=== PATIENT | male | born 1945 | race Asian ===

== ENCOUNTER → 2019-10-12 | Day surgery (SDC) | payer MEDICARE ==
[2019-10-08 11:58] LABS: BASOPHILS # (AUTO) 0.1 (0.0-0.1); BASOPHILS % 0.6 % (0.0-1.0); EOSINOPHILS # (AUTO) 0.3 (0.0-0.4); EOSINOPHILS % 4.1 % (0.0-6.0); HEMATOCRIT 44.8 % (38.2-49.6); HEMOGLOBIN 15.5 g/dL (14.0-18.0); LYMPHOCYTES # (AUTO) 1.8 (1.0-3.2); LYMPHOCYTES % 22.3 % (18.0-39.1); MEAN CORPUSCULAR HEMOGLOBIN 33.4 pg (28-32); MEAN CORPUSCULAR HGB CONC 34.6 g/dL (31-35); MEAN CORPUSCULAR VOLUME 96.6 fL (81-99); MONOCYTES # (AUTO) 0.6 (0.2-0.8); MONOCYTES % 7.9 % (4.4-11.3); NEUTROPHILS # (AUTO) 5.2 (2.1-6.9); NEUTROPHILS % 64.8 % (38.7-80.0); PLATELET COUNT 245 x10e3/uL (140-360); RED BLOOD COUNT 4.64 x10e6/uL (4.3-5.7)
[~2019-10-12] MED LIST: ASPIR 8181 MG PO; ATORVASTATIN CA20 MG PO; CARVEDILOL25 MG PO; FISH OIL 1,2001 EAC6 PO; GLIMEPIRIDE2 MG PO; LANTUS SOLOSTAR SQ; LISINOPRIL10 MG PO; MULTI-VITAMIN1 EACH PO; PROPOFOL IV EMULSION 10 MG/ML 20 ML VIAL ONE; TRULICITY0.75 MG/0. SQ; TUMERIC PO
--- OUTSIDE RECORDS SUMMARY | 2019-10-12 05:48 | XMS REPORT | Encounter Summary ---
Author Organization Unknown Address [address] [place] [address] Phone [phone] Care Team Providers Care Maintenance Clerk Name Role Phone Hernan Villar MD 3 [phone] Abhilash Whitfield MD 82 [phone] Rae Hahn DMD 104 [phone] Leti Jones MD 105 [phone] Franky Ferrer MD 111 [phone] Gio Cortez MD 118 [phone] Bladimir Wing 118 [phone] Lidia Davidson MD 119 [phone] Liz Preston MD 129 [phone] Reason for Visit chronic conditions Instructions 1. Diabetes mellitus HbA1c (hemoglobin A1c), blood 2. Hypertensive disorder 3. Dyslipidemia 4. Peripheral vascular disease 5. Screening for cardiovascular system disease ankle brachial index - Peripheral Artery Disease Ratio ([employer]) 6. Screening for disorder hepatitis C virus RNA, quant, PCR, serum or plasma 7. Body mass index 25-29 - overweight learning about healthy weight Discussion Note: None recorded. Plan of Care Patient Instructions RTC 3mo Reminders Provider Appointments Est Patient 02/04/2019 9:15AM Hernan Villar MD Lab Hepatitis C Virus RNA, Quant, PCR, Serum or Plasma 11/04/2018 [facility] Laboratory HbA1C (Hemoglobin a1C), Blood 11/04/2018 [facility] Laboratory Referral None recorded. Procedures None recorded. Surgeries None recorded. Imaging Ankle Brachial Index 11/04/2018 [facility] ([facility]) [place] Medications Name Start Date amlodipine besylate 10 mg tabs -81 atorvastatin 20 mg tablet Take 1 tablet every day by oral route. carvedilol 25 mg tablet Take 1 tablet twice a day by oral route. contour next blood glucose test strp glimepiride 4 mg tablet Take 1 tablet twice a day by oral route. lisinopril 40 mg tablet Take 1 tablet every day by oral route. pioglitazone 45 mg tablet Take 1 tablet every day by oral route. Tradjenta 5 mg tablet Take 1 tablet every day by oral route. triamcinolone acetonide 0.1 % crea triamcinolone acetonide 0.1 % oint Trulicity 1.5 mg/0.5 mL subcutaneous pen injector Inject 0.5 mL every week by subcutaneous route. Medications Administered None recorded. Vitals Height Weight BMI Blood Pressure 5 ft 10 in 177.7 lbs 25.5 kg/m2 128/62 mm[Hg] Lab Results None recorded. 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 Lichen Planus Active 10/19/2018 Peripheral Vascular Disease Active 11/04/2018 Procedures Date Name Performed by 08/25/2009 Cataract Surgery Complex Information not available 08/25/2009 Appendectomy Information not available Colonoscopy Information not available 11/04/2018 Ankle Brachial Index [facility] ([facility] [address] [place] [address] (Work [address]) Vaccine List Vaccine Type influenza, unspecified formulation 04/25/2017 05/14/2018 pneumococcal conjugate PCV 13 08/25/2012 pneumococcal polysaccharide PPV23 08/25/2016 Social History Smoking Status Former Smoker (2 PPW) Past Encounters 11/04/2018 Diabetes Mellitus; Hypertensive Disorder; Dyslipidemia; Peripheral Vascular Disease; Screening for Cardiovascular System Disease; Screening for Disorder; Body Mass Index 25-29 - Overweight Hernan Villar MD: [address], [address], [place] [address], Ph. History of Present Illness Note:<div>diabetes mellitus - BG 200s on new Trulicity dose. BG is going down slowly to 150s. Taking meds. No problems with side effects or cost.
</div>< div>glimepiride 4 mg tablet
</div><div>pioglitazone 45 mg tablet
</div>< div>Tradjenta 5 mg tablet
</div><div>Trulicity 1.5 mg/0.5 mL subcutaneous pen injector 0.5 mL every week
</div><div>
</div><div>hypertensive disorder - Stable. Taking meds. No problems with side effects or cost.
</div><div> amLODIPine 10 mg tablet
</div><div>carvedilol 25 mg tablet
</div><div> lisinopril 40 mg tablet
</div><div>
</div><div>dyslipidemia - Stable. Taking meds. No problems with side effects or cost.
</div><div>atorvastatin 20 mg tablet</div><div>
</div>skin lesion - stable
<div>Refer DermDr Clos - saw</div><div>
</div><div>ophthalmic examination and evaluation
< /div><div>Refer ophthDr. Caitlin Dr.</div><div>
</div><div> Your labs are normal except...
</div><div>1. Your kidney tests are abnormal. Drink water at least 4 times daily. See your kidney doctor regularly.
</div>< div>2. Your diabetes is better but still higher than I would like. I am increasing your Trulicity from 0.75 mg to 1.5 mg weekly injections. I recommend low carb / sugar diet and walking. I will monitor.</div> Review of Systems:ROS as noted in the HPI Review of Systems Comprehensive General Adult ROS Reported By: Patient Constitutional: Constitutional: no fever Eyes: Eyes: no vision change, no irritation ENMT: Ears: no difficulty hearing, no ear pain. Nose: no nose problems, no sinus problems. Mouth/Throat: no sore throat, no oral abnormalities Cardiovascular: Cardiovascular: no chest pain, no palpitations Respiratory: Respiratory: no cough, no wheezing, no shortness of breath Gastrointestinal: Gastrointestinal: no abdominal pain, no nausea, no vomiting, no constipation, normal appetite, no diarrhea, no GERD Genitourinary: Genitourinary: no difficulty urinating, no hematuria, no increased frequency Musculoskeletal: Musculoskeletal: no muscle aches Integumentary: Skin: no rashes Neurologic: Neurologic: no headaches Endocrine: Endocrine: no fatigue Hematologic/Lymphatic: Hematologic/Lymphatic no swollen glands Allergic/Immunologic: Allergy/Immunologic: no runny nose, no sinus pressure, no itching, no frequent sneezing Physical Exam General Adult Exam (male) Reported By: Patient Constitutional: General Appearance: healthy-appearing, well-nourished, well-developed. Level of Distress: NAD. Ambulation: ambulating normally Psychiatric: Insight: good judgement. Mental Status: normal mood, normal affect Head: Head: normocephalic, atraumatic Eyes: Lids and Conjunctivae: non-injected, no discharge, no pallor. Pupils: PERRLA. EOM: EOMI ENMT: Ears: no lesions on external ear, EACs clear, TMs clear. Hearing: no hearing loss. Nose: no lesions on external nose, nares patent, nasal passages clear, no sinus tenderness, no nasal discharge. Oropharynx: moist mucous membranes, no erythema, no exudates, tonsils not enlarged Neck: Neck: supple, trachea midline, no masses, FROM. Lymph Nodes: no cervical LAD, no supraclavicular LAD Lungs: Respiratory effort: no dyspnea. Auscultation: breath sounds normal, good air movement, CTA except as noted, no wheezing, no rales/crackles, no rhonchi Cardiovascular: Heart Auscultation: RRR, normal S1, normal S2, no murmurs, no rubs, no gallops Abdomen: Bowel Sounds: normal. Inspection and Palpation: soft, non-distended, no tenderness, no guarding, no masses. Liver: non-tender, no hepatomegaly. Spleen: non-tender, no splenomegaly Musculoskeletal:: Extremities: no edema Neurologic: Gait and Station: normal gait, normal station Skin: Inspection and palpation: rash; rash on yessi UE, red bumps
--- OUTSIDE RECORDS SUMMARY | 2019-10-12 05:48 | XMS REPORT | Encounter Summary ---
Author Organization Unknown Address [address] [place] [address] Phone [phone] Care Team Providers Care Medical Artist Name Role Phone Dr. Hernan Villar 3 [phone] Hernan Villar MD 3 [phone] Abhilash Whitfield MD 82 [phone] Rae Hahn DMD 104 [phone] Leti Jones MD 105 [phone] Franky Ferrer MD 111 [phone] Gio Cortez MD 118 [phone] Bladimir Wing 118 [phone] Lidia Davidson MD 119 [phone] Liz Preston MD 129 [phone] Reason for Visit chronic conditions Instructions 1. Diabetes mellitus diabetic ophthalmology referral HbA1c (hemoglobin A1c), blood Trulicity 1.5 mg/0.5 mL subcutaneous pen injector 2. Hypertensive disorder 3. Dyslipidemia 4. Influenza vaccination Fluzone High-Dose 2019-20 (PF) 180 mcg/0.5 mL intramuscular syringe 5. Body mass index 25-29 - overweight Discussion Note: None recorded. Patient educational handouts: No information available. Plan of Care Patient Instructions RTC 1 mo for AWV Reminders Provider Appointments Awv on or around 08/06/2019 Hernan Villar MD Lab HbA1C (Hemoglobin a1C), Blood 07/07/2019 [facility] Laboratory Referral Diabetic Ophthalmology Referral 07/07/2019 Franky Ferrer MD Procedures None recorded. Surgeries None recorded. Imaging None recorded. Medications Name Start Date amlodipine 10 mg tablet Take 1 tablet every day by oral route. Aspir-81 atorvastatin 20 mg tablet Take 1 tablet every day by oral route. carvedilol 25 mg tablet Take 1 tablet twice a day by oral route. Contour Next Test Strips Check blood sugar daily. Rotate between fasting / breakfast / lunch / dinner. glimepiride 4 mg tablet Take 1 tablet twice a day by oral route. lisinopril 40 mg tablet Take 1 tablet every day by oral route. Trulicity 1.5 mg/0.5 mL subcutaneous pen injector Inject 0.5 mL every week by subcutaneous route. Medications Administered None recorded. Vitals Height Weight BMI Blood Pressure 5 ft 10 in 178.6 lbs 25.6 kg/m2 118/68 mm[Hg] Results Lab Results None recorded. Allergies Code Code System Name Reaction Severity Status Onset NKDA Problems Name Status Onset Date Source Diabetes Mellitus Active 02/03/2018 Dyslipidemia Active 02/03/2018 Depressive Disorder Active 02/03/2018 Hypertensive Disorder Active 02/03/2018 Chronic Kidney Disease Stage 3 Active 02/03/2018 Lichen Planus Active 10/19/2018 Peripheral Vascular Disease Active 11/04/2018 Procedures Date Name Performed by 08/25/2009 Cataract Surgery Complex Information not available 08/25/2009 Appendectomy Information not available Colonoscopy Information not available Vaccine List Vaccine Type influenza, unspecified formulation 04/25/2017 05/14/2018 pneumococcal conjugate PCV 13 08/25/2012 pneumococcal polysaccharide PPV23 08/25/2016 Social History Tobacco Smoking Status Former Smoker (2 PPW) Past Encounters 07/07/2019 Diabetes Mellitus; Hypertensive Disorder; Dyslipidemia; Influenza Vaccination; Body Mass Index 25-29 - Overweight Hernan Villar MD: [id number], [address] [address], Ph. History of Present Illness Note:diabetes mellitus - Stable. BG 90-170. Taking meds. No problems with side effects or cost. <div>x/ below <div>D/C Tradjenta since DDP4 similar to GLP1 - Pt still taking Tradjenta</div><div>pioglitazone 30 mg tablet - Pt never took< /div><div>glimepiride 4 mg tablet
</div><div>Trulicity 0.75 mg/0.5 mL subcutaneous pen injector
</div><div>
</div><div>hypertensive disorder - Stable. Taking meds. No problems with side effects or cost.
</div><div> amLODIPine 10 mg tablet
</div><div>carvedilol 25 mg tablet
</div><div> lisinopril 40 mg tablet
</div><div>
</div><div>dyslipidemia - Stable. Taking meds. No problems with side effects or cost.
</div><div>atorvastatin 20 mg tablet
</div><div>
</div><div>chronic kidney disease stage 3 - stable
</div><div>Per Neph</div><div>
</div><div>screening for malignant neoplasm of colon
</div><div>Refer GI, Dr. Whitfield - not yet</div><div>
</div ><div>Your labs are normal except...
</div><div>1. Your diabetes is high. I am restarting Pioglitazone. I recommend low carb / sugar diet and walking. I will monitor.
</div><div>
</div></div> Review of Systems:ROS as noted in the [...] Reported By: Patient Constitutional: General Appearance: healthy-appearing, well-developed, overweight. Level of Distress: NAD. Ambulation: ambulating normally Psychiatric: Insight: good judgement. Mental Status: active and alert, normal mood, normal affect Head: Head: normocephalic, atraumatic Lungs: Respiratory effort: no dyspnea. Auscultation: breath sounds normal, good air movement, CTA except as noted Cardiovascular: Heart Auscultation: RRR, normal S1, normal S2 Neurologic: Gait and Station: normal gait, normal station
--- OUTSIDE RECORDS SUMMARY | 2019-10-12 05:48 | XMS REPORT | Encounter Summary ---
Author Organization Unknown Address [address] [place] [address] Phone [phone] Care Team Providers Care Band Bias Machine Operator Name Role Phone Hernan Villar MD 3 [phone] Abhilash Whitfield MD 82 [phone] Rae Hahn DMD 104 [phone] Leti Jones MD 105 [phone] Franky Ferrer MD 111 [phone] Gio Cortez MD 118 [phone] Bladimir Wing 118 [phone] Lidia Davidson MD 119 [phone] Liz Preston MD 129 [phone] Reason for Visit chronic conditions Instructions 1. Diabetes mellitus HbA1c (hemoglobin A1c), blood glimepiride 4 mg tablet Trulicity 0.75 mg/0.5 mL subcutaneous pen injector 2. Hypertensive disorder amlodipine 10 mg tablet carvedilol 25 mg tablet lisinopril 40 mg tablet 3. Dyslipidemia atorvastatin 20 mg tablet 4. Chronic kidney disease stage 3 PTH (parathyroid hormone), intact, serum or plasma 5. Depressive disorder 6. Screening for malignant neoplasm of colon colonoscopy referral 7. Body mass index 25-29 - overweight learning about healthy weight Discussion Note: None recorded. Plan of Care Patient Instructions RTC 6mo for AWV Reminders Provider Appointments Awv on or around 08/06/2019 Hernan Villar MD Lab HbA1C (Hemoglobin a1C), Blood 02/04/2019 [facility] PTH (Parathyroid Hormone), Intact, Serum or Plasma 02/04/2019 [facility] Laboratory Referral Colonoscopy Referral 02/04/2019 Luiz Whitfield MD Procedures None recorded. Surgeries None recorded. [...] tablet every day by oral route. Trulicity 0.75 mg/0.5 mL subcutaneous pen injector Inject 0.5 mL every week by subcutaneous route. Medications Administered None recorded. Vitals Height Weight BMI Blood Pressure 5 ft 10 in 178.2 lbs 25.6 kg/m2 122/68 mm[Hg] Lab Results None recorded. Allergies Code [...] Status Former Smoker (2 PPW) Past Encounters 02/04/2019 Diabetes Mellitus; Hypertensive Disorder; Dyslipidemia; Chronic Kidney Disease Stage 3; Depressive Disorder; Screening for Malignant Neoplasm of Colon; Body Mass Index 25-29 - Overweight Hernan Villar MD: [address], [address], [place] [address], Ph. History of Present Illness Note:diabetes mellitus - Stable. Taking meds. No problems with side effects or cost.
<div>Trulicity 0.75 mg/0.5 mL subcutaneous pen injector</div><div> Lantus Solostar U-100 Insulin 100 unit/mL (3 mL) subcutaneous pen - not using, w ants to avoid</div><div>
</div><div>hypertensive disorder - Stable. Taking meds. No problems with side effects or cost.
</div><div>
</div><div> dyslipidemia - Stable. Taking meds. No problems with side effects or cost.
< /div><div>
</div><div>CKD - stable</div><div>
</div><div>peripheral vascular disease - stable</div><div>
</div><div>Your labs are normal except...
</div><div>1. Your diabetes is still a little high. Take your meds. I am referring you to our physician assistant psychiatry, Partha. I am also starting you on a low dose insulin. I recommend low carb / sugar diet [...]
--- OUTSIDE RECORDS SUMMARY | 2019-10-12 05:48 | XMS REPORT | Encounter Summary ---
Author Organization Unknown Address [address] [place] [address] Phone [phone] Care Team Providers Care Disintegrator Feeder Name Role Phone Dr. Hernan Villar 3 [phone] Hernan Villar MD 3 [phone] Abhilash Whitfield MD 82 [phone] Rae Hahn DMD 104 [phone] Leti Jones MD 105 [phone] Franky Ferrer MD 111 [phone] Gio Cortez MD 118 [phone] Bladimir Wing 118 [phone] Lidia Davidson MD 119 [phone] Liz Preston MD 129 [phone] Reason for Visit Annual Depression Screening; Medicare Screening PSA; Advance Care Plan; AWV Annual Wellness Visit Male (VFP) Instructions 1. Diabetes mellitus CBC w/ auto diff CMP, serum or plasma TSH, serum or plasma HbA1c (hemoglobin A1c), blood microalbumin/creatinine, mass ratio, urine glimepiride 4 mg tablet Trulicity 1.5 mg/0.5 mL subcutaneous pen injector Lantus Solostar U-100 Insulin 100 unit/mL (3 mL) subcutaneous pen 2. Hypertensive disorder amlodipine 10 mg tablet carvedilol 25 mg tablet lisinopril 40 mg tablet 3. Dyslipidemia lipid panel, serum atorvastatin 20 mg tablet 4. Peripheral vascular disease 5. Chronic kidney disease stage 3 6. Senile purpura 7. Depressive disorder 8. Adult health examination 9. Screening for malignant neoplasm of colon colonoscopy referral - *PLEASE CALL PT TO SCHEDULE* 10. Screening for malignant neoplasm of prostate PSA, serum or plasma 11. Depression screening learning about depression 12. Advance directive discussed with patient advance care planning: care instructions 13. Screening for disorder 14. Body mass index 25-29 - overweight learning about healthy weight Discussion Note RTC 3 mo Plan of Care Patient Instructions It was good to see you in the office today for your Medicare Annual Wellness Visit. You have been provided some information on healthy nutrition, including a diet rich in fruits and vegetables, minimizing simple carbohydrates, salt, and saturated fats. I want to encourage regular cardiovascular exercise such as walking at least 30 minutes daily, 5 times per week. Please remember to schedule any preventive health measures that we talked about today. You have also been provided education on fall prevention and community- based lifestyle interventions to help reduce health risks and promote healthy living in your Annual Wellness folder. Screening Recommendations 1. Vaccines Pneumonia: No further need Influenza: Next Fall 2. Colorectal Cancer Screening: Colonoscopy (every 10 years) Ordered 3. Annual Prostate Screening 4. Annual Depression Screening 5. Annual Alcohol Screening 6. Annual Fall Risk Screening 7. Annual Health Risk Assessment Patient Instructions on Filing Advance Directives Be sure that you have easy access to your paperwork for your medical power of civil engineering project designer and advanced directives. Be sure that the designated person as well as important family members have copies of those forms as well. Please have contact information of your designee readily available. In the event of hospitalization, please bring those important documents with you for reference. Reminders Provider Appointments Est Patient on or around 11/17/2019 Hernan Villar MD Awv 30 on or around 08/19/2020 Hernan Villar MD Lab PSA, Serum or Plasma 08/19/2019 [facility] CBC W/ Auto Diff 08/19/2019 [facility] CMP, Serum or Plasma 08/19/2019 [facility] TSH, Serum or Plasma 08/19/2019 [facility] Lipid Panel, Serum 08/19/2019 [facility] HbA1C (Hemoglobin a1C), Blood 08/19/2019 [facility] Microalbumin/creatinine, Mass Ratio, Urine 08/19/2019 [facility] Referral Colonoscopy Referral 08/19/2019 Del Warren MD Procedures None recorded. Surgeries None recorded. [...] tablet twice a day by oral route. Lantus Solostar U-100 Insulin 100 unit/mL (3 mL) subcutaneous pen Inject 15 units every day by subcutaneous route. lisinopril 40 mg tablet Take 1 tablet every day by oral route. Trulicity 1.5 mg/0.5 mL subcutaneous pen injector Inject 0.5 mL every week by subcutaneous route. Medications Administered None recorded. Vitals Height Weight BMI Blood Pressure 5 ft 10 in 181 lbs 26 kg/m2 139/69 mm[Hg] Results Lab Results None recorded. Allergies Code Code System Name Reaction Severity Status Onset NKDA Problems Name Status Onset Date Source Diabetes Mellitus Active 02/03/2018 Dyslipidemia Active 02/03/2018 Depressive Disorder Active 02/03/2018 Hypertensive Disorder Active 02/03/2018 Chronic Kidney Disease Stage 3 Active 02/03/2018 Lichen Planus Active 10/19/2018 Peripheral Vascular Disease Active 11/04/2018 Senile Purpura Active 08/19/2019 Procedures Date Name Performed by 08/25/2009 Cataract Surgery Complex Information not available 08/25/2009 Appendectomy Information not available Colonoscopy Information not available Vaccine List Vaccine Type influenza, high dose seasonal 07/07/20190.5 mL influenza, unspecified formulation 04/25/2017 05/14/2018 pneumococcal conjugate PCV 13 08/25/2012 pneumococcal polysaccharide PPV23 08/25/2016 Social History Tobacco Smoking Status Former Smoker (2 PPW) Past Encounters 08/19/2019 Diabetes Mellitus; Hypertensive Disorder; Dyslipidemia; Peripheral Vascular Disease; Chronic Kidney Disease Stage 3; Senile Purpura; Depressive Disorder; Adult Health Examination; Screening for Malignant Neoplasm of Colon; Screening for Malignant Neoplasm of Prostate; Depression Screening; Advance Directive Discussed with Patient; Screening for Disorder; Body Mass Index 25-29 - Overweight Hernan Villar MD: [id number] [facility], [address], [place] [address], Ph. History of Present Illness Mini Cog Reported By: Patient Functional Ability: Personal/Social/ Draw a clock and write in the numbers in the correct place, and set the time to 10 minutes after 11 o'clock was completed correctly? Yes, 3 word recall: Your nurse or doctor will ask you to remember 3 words. In 5 minutes, they will ask you to repeat them. Patient recalled 3 words Opioid Use Assessment Reported By: Patient Opioid Use Assessment:: Current Use of Opioids : no use of opioids (no further questions required) Note:<div>AWV due.</div><div>
</div><div>Skin - bruises easily.</div><div>
</div><div>diabetes mellitus - Stable. Taking meds. No problems with side effects or cost. </div><[facility]</div><div> Trulicity 1.5 mg/0.5 mL subcutaneous pen injector 0.5 mL every week</div><div>< br></div><div>hypertensive disorder - Stable. Taking meds. No problems with side effects or cost. </div><div>
</div><div>dyslipidemia - Stable. Taking meds. No problems with side effects or cost. </div><div>
</div><div>CKD - stable< /div><div>
</div><div>PVD - stable. Control RF.</div><div>
</div><div> Depression - resolved. Not on meds.</div><div>
</div><div>Your labs are normal except...
</div><div>1. Your Diabetes is high. Take your meds. I recommend low carb / sugar diet and walking. I will monitor.</div><div>
</div >I'd like to talk about what is ahead with your illness and do some thinking in advance about what is important to you so I can make sure we provide you with the care you want-is that okay? {{Yes*|No}} Review of Systems:ROS as noted in the HPI Review of Systems Comprehensive General Adult ROS Reported By: Patient Constitutional: Constitutional: no fever, no night sweats, no significant weight gain, no significant weight loss, no exercise intolerance Eyes: Eyes: no dry eyes, no vision change, no irritation ENMT: Ears: no difficulty hearing, no ear pain. Nose: no frequent nosebleeds, no nose problems, no sinus problems. Mouth/Throat: no sore throat, no bleeding gums, no snoring, no dry mouth, no mouth ulcers, no oral abnormalities, no teeth problems Cardiovascular: Cardiovascular: no chest pain, no arm pain on exertion, no shortness of breath when walking, no shortness of breath when lying down, no palpitations, no known heart murmur, no lightheadedness Respiratory: Respiratory: no cough, no wheezing, no shortness of breath, no coughing up blood, no sleep apnea Gastrointestinal: Gastrointestinal: no abdominal pain, no nausea, no vomiting, no constipation, normal appetite, no diarrhea, not vomiting blood, no dyspepsia, no GERD Genitourinary: Genitourinary: no incontinence, no difficulty urinating, no hematuria, no increased frequency Musculoskeletal: Musculoskeletal: no muscle aches, no muscle weakness, no arthralgias/joint pain, no back pain, no swelling in the extremities Integumentary: Skin: no abnormal mole, no jaundice, no rashes, no laceration Neurologic: Neurologic: no loss of consciousness, no weakness, no numbness, no seizures, no dizziness, no migraines, no headaches, no tremor Psychiatric: Psych: no depression, no sleep disturbances, feeling safe in a relationship, no alcohol abuse, no anxiety, no hallucinations, no suicidal thoughts Endocrine: Endocrine: no fatigue Hematologic/Lymphatic: Hematologic/Lymphatic no swollen glands, no bruising, no excessive bleeding Allergic/Immunologic: Allergy/Immunologic: no runny nose, no sinus pressure, no itching, no hives, no frequent sneezing Physical Exam General Adult Exam (male) Reported By: Patient Constitutional: General Appearance: healthy-appearing, well-developed, overweight. Level of Distress: NAD. Ambulation: ambulating normally Psychiatric: Insight: good judgement. Mental Status: active and alert, normal mood, normal affect. Orientation: to time, to place, to person. Memory: recent memory normal, remote memory normal Head: Head: normocephalic, atraumatic Eyes: Lids and Conjunctivae: non-injected, no discharge, no pallor. Pupils: PERRLA. EOM: EOMI. Lens: clear. Sclerae: non-icteric. Vision: peripheral vision grossly intact, acuity grossly intact ENMT: Ears: no lesions on external ear, EACs clear, TMs clear, TM mobility normal. Hearing: no hearing loss. Nose: no lesions on external nose, nares patent, no septal deviation, nasal passages clear, no sinus tenderness, no nasal discharge. Lips, Teeth, and Gums: no mouth or lip ulcers, no bleeding gums, normal dentition. Oropharynx: moist mucous membranes, no erythema, no exudates, tonsils not enlarged Neck: Neck: supple, trachea midline, no masses, FROM. Lymph Nodes: no cervical LAD, no supraclavicular LAD, no axillary LAD, no inguinal LAD. Thyroid: no enlargement, non-tender, no nodules Lungs: Respiratory effort: no dyspnea. Auscultation: breath sounds normal, good air movement, CTA except as noted, no wheezing, no rales/crackles, no rhonchi Cardiovascular: Heart Auscultation: RRR, normal S1, normal S2, no murmurs, no rubs, no gallops. Neck vessels: no carotid bruits. Pulses including femoral / pedal: normal throughout Abdomen: Bowel Sounds: normal. Inspection and Palpation: soft, non-distended, no tenderness, no guarding, no rebound tenderness, no masses, no CVA tenderness. Liver: non-tender, no hepatomegaly. Spleen: non-tender, no splenomegaly Musculoskeletal:: Motor Strength and Tone: normal, normal tone. Joints, Bones, and Muscles: normal movement of all extremities, no contractures, no bony abnormalities, no malalignment, no tenderness. Extremities: no cyanosis, no edema, no varicosities Neurologic: Gait and Station: normal gait, normal station. Cranial Nerves: grossly intact. Sensation: grossly intact. Reflexes: DTRs 2+ bilaterally throughout. Coordination and Cerebellum: no tremor Skin: Inspection and palpation: no lesions, no jaundice Back: Thoracolumbar Appearance: normal curvature; No spinal tenderness to palpation"
--- OUTSIDE RECORDS SUMMARY | 2019-10-12 05:48 | XMS REPORT | Encounter Summary ---
Author Organization Unknown Address [address] [place] [address] Phone [phone] Care Team Providers Care Drier Belt Conveyor Name Role Phone Hernan Villar MD 3 [phone] Abhilash Whitfield MD 82 [phone] Rae Hahn DMD 104 [phone] Leti Jones MD 105 [phone] Franky Ferrer MD 111 [phone] Gio Cortez MD 118 [phone] Bladimir Wing 118 [phone] Lidia Davidson MD 119 [phone] Liz Preston MD 129 [phone] Reason for Visit Diabetic Education, Class 3; Diabetic Education, Class 4 Instructions Discussion Note Class 3 of diabetes education completed today. Topics covered were: What blood glucose and insulin are Blood glucose targets and reactions to out-of range levels â What can cause blood glucose to go up and down and how to prevent hypoglycemia and hyperglycemia Using your monitoring results to manage you diabetes. Class 4 of diabetes education completed. Topics covered included:The potential long-term complications of diabetesHow to delay or reduce the risk of regional intermodal truck driver complications of diabetesKnowing your ABCs of diabetes. (A1C, B/P, cholesterol). Patient educational handouts: No information available. Plan of Care Reminders Provider Appointments Est Patient 02/04/2019 9:15AM Hernan Villar MD Lab None recorded. Referral None recorded. Procedures None recorded. Surgeries None recorded. Imaging None recorded. Medications Name Start Date amlodipine besylate 10 mg tabs Aspir-81 atorvastatin 20 mg tablet Take 1 tablet every day by oral route. carvedilol 25 mg tablet Take 1 tablet twice a day by oral route. carvedilol 25 mg tabs contour next blood glucose test strp glimepiride 4 mg tablet Take 1 tablet twice a day by oral route. glimepiride 4 mg tabs Lantus Solostar U-100 Insulin 100 unit/mL (3 mL) subcutaneous pen Inject 5 units every day by subcutaneous route. lisinopril [...] subcutaneous route. Medications Administered None recorded. Vitals None recorded. Lab Results None recorded. Allergies Code Code [...] Status Former Smoker (2 PPW) Past Encounters 12/18/2018 Jeff Jacob: [address], [facility] [address], [place] [address], Ph. History of Present Illness Diabetic Education Reported By: Patient Note:Patient attended group class 3 in a series of 4 classes on managing diabetes. Healthy Interactions Conversation Map "Monitoring Your Blood Glucose" used to facilitate group class discussion. Topics included: what blood glucose and insulins are, blood glucose target ranges, Hemoglobin A1C and A1C targets, the causes, symptoms, and prevention of high and low blood sugars, and using monitoring results to manage diabetes. All attendees were encouraged to participate and share personal knowledge and experiences with diabetes. Review of Systems None recorded. Physical Exam None recorded.
--- OUTSIDE RECORDS SUMMARY | 2019-10-12 05:48 | XMS REPORT | Encounter Summary ---
Author Organization Unknown Address [address] [place] [address] Phone [phone] Care Team Providers Care Scarifier Operator Name Role Phone Hernan Villar MD 3 [phone] Abhilash Whitfield MD 82 [phone] Rae Hahn DMD 104 [phone] Leti Jones MD 105 [phone] Franky Ferrer MD 111 [phone] Gio Cortez MD 118 [phone] Bladimir Wing 118 [phone] Lidia Davidson MD 119 [phone] Liz Preston MD 129 [phone] Reason for Visit Diabetic Education, Class 2; Diabetic Education, Class 1 Instructions Discussion Note Class 1 of diabetes education was completed today. Topics covered included: What is diabetes including common myths and facts Dealing with feelings and emotions surrounding the diagnosis and management of diabetes What causes glucose to go up and down and signs and symptoms of hypo and hyperglycemia The importance of monitoring glucose on a regular basis Schultz aspects of managing diabetes including food, activity and medication The importance of involving ones support system in the management of diabetes. Class 2 of diabetes education was completed today. Topics covered included:The relationship between diabetes and foodFeeling about food and healthy eating €How what you eat, how much you eat, and when you eat can affect your blood glucose Meal planning and other strategies for healthy eating. Patient educational handouts: No information available. Plan of Care Reminders Provider Appointments Est Patient 02/04/2019 9:15AM Hernan Villra MD Lab None recorded. Referral None recorded. [...] 1 tablet every day by oral route. lisinopril 40 mg tabs pioglitazone 45 mg tablet Take 1 tablet [...] Status Former Smoker (2 PPW) Past Encounters 12/25/2018 Jeff Jacob: [address], [facility] [address], [place] [address], Ph. 12/18/2018 Jeff Jacob: [address], [facility] [address] [place] [address], Ph. History of Present Illness Diabetic Education Reported By: Patient Note:Patient attended group class 1 in a series of 4 classes on managing diabetes. Healthy Interactions Conversation Map "On the Road to Better Managing Your Diabetes" was used to facilitate group class discussion. Topics discussed included: What diabetes is, common myths about diabetes, feelings about having diabetes, what blood glucose and insulins are, monitoring BG and using the results, managing diabetes with healthy eating, physical activity, and taking medication. Also discussed was the importance of having a plan and engaging a support network and health care team. All attendees were encouraged to participate and share personal knowledge and experiences with diabetes.

< div>Patient attended group class 2 in a series of 4 classes on managing diabetes. Healthy Interactions Conversation Map "Diabetes and Healthy Eating" used to facilitate group class discussion. Discussed the relationship between blood glucose, food, feelings about food and eating. Explained the role of nutrients in food, meal planning, and other strategies for healthy eating. Reviewed carbohydrate counting, label reading, and the importance of consistent carbohydrate intake at meals along with consistent meal times. Gave tips for making healthy food choices during special occasions and reinforced the importance of having a plan for healthy eating. Discussed the importance of engaging their support network and health care team. All attendees were encouraged to participate and share personal knowledge and experience with diabetes.</div> Review of Systems None recorded. Physical Exam None recorded.
[2019-10-12 08:40] VITALS: BP 127/65
--- NOTE | 2019-10-12 10:36 | Operative Report ---
DATE OF PROCEDURE: SURGEON: Del Warren MD NAME OF THE PROCEDURE: Colonoscopy. PREPROCEDURE DIAGNOSIS: The patient with history of adenomatous colon polyps here for colonoscopy. DESCRIPTION OF PROCEDURE: After informed written consent, premedications with monitored anesthesia care, standard videocolonoscope was introduced to the rectum and all the way into the terminal ileum. Terminal ileum and cecum appeared to be normal, except for a tiny polyp in the cecum, which was like 3 mm in size, removed by cold snare. The hepatic flexure showed three polyps varying in size from 3-5 mm, all removed by cold snare. Transverse, descending, sigmoid, retroflexion of the rectum all appeared to be normal. IMPRESSION: Four colon polyp status post cold snare polypectomy. RECOMMENDATIONS: Colonoscopy in three years. Follow up in the office in followup to check the pathology. Further recommendation based on patient's clinical course. Del Warren MD SR/MODL /[id number]
== END | disposition home or self-care (01) ==
LOC: OR 05:36
PROVIDERS: ATTEND Internal Medicine Gastroenterology
DX: Z12.11 Encounter for screening for malignant neoplasm of colon (principal); D12.3 Benign neoplasm of transverse colon; Z71.3 Dietary counseling and surveillance; E66.3 Overweight; E11.22 Type 2 diabetes mellitus with diabetic chronic kidney disease; I12.9 Hypertensive chronic kidney disease with stage 1 through stage 4 chronic kidney disease, or unspecified chronic kidney disease; N18.9 Chronic kidney disease, unspecified; E78.5 Hyperlipidemia, unspecified; Z01.810 Encounter for preprocedural cardiovascular examination; Z01.812 Encounter for preprocedural laboratory examination; Z79.82 Long term (current) use of aspirin; Z79.4 Long term (current) use of insulin; Z68.25 Body mass index [BMI] 25.0-25.9, adult; Z87.891 Personal history of nicotine dependence
CPT/HCPCS: 36415 ×2; 45385; 82948; 85025; 88305; 93005; J2704; 45378